=== PATIENT | female | born 1945 | race Caucasian/White ===

== ENCOUNTER 2020-12-17 10:51 | Outpatient (CLI) | payer MEDICARE ==
--- NOTE | 2020-12-28 12:45 | DEXA Report ---
PROCEDURE: Dexa Spine and/or Hip INDICATIONS: POST MENOPAUSAL TECHNIQUE: Dual energy x-ray absorptiometry (DXA) was performed on a Mobile365 (fka [employer]) System. Regions measur ed are the AP Spine, femoral neck, and if needed forearm. COMPARISON: None. FINDINGS: Lumbar Spine: Bone Mineral Density 1.279 g/cm/cm,T score 0.9, normal Left Hip: Bone Mineral Density 1.07. g/cm/cm,T score 0.5, normal Left Femoral Neck: Bone Mineral Density 0.974 g/cm/cm, T score -0.5, normal (T score greater or equal to -1.0: NORMAL) (T score from -1.1 to -2.4: OSTEOPENIA) (T score less than or equal to -2.5 to: OSTEOPOROSIS) Impression: Normal bone mineral density. Patients with diagnosis of osteoporosis or osteopenia should have regular bone mineral density assess ment. For those eligible for Medicare, routine testing is allowed once every 2 years. Testing frequ ency can be increased for patients who have rapidly progressing disease or for those who are receivin g medical therapy to restore bone mass. Reviewed by: Charlette Fraga MD on 12/17/2020 3:58 PM PDT Approved by: Charlette Fraga MD on 12/17/2020 3:58 PM PDT Station ID: [id number]
== END 2020-12-17 10:52 | disposition home or self-care (01) ==
LOC: DI 10:51
PROVIDERS: ATTEND Registered Nurse
DX: Z78.0 Asymptomatic menopausal state (principal)

== ENCOUNTER 2020-12-17 10:54 | Outpatient (CLI) | payer MEDICARE ==
--- NOTE | 2020-12-23 09:54 | Mammography Report ---
BILATERAL DIGITAL SCREENING MAMMOGRAM 3D/2D: 12/17/2020 CLINICAL: Routine screening. Comparison is made to exam dated: 02/25/2004 mammogram - [facility]. There are scattere d fibroglandular elements in both breasts. There are grouped fine punctate calcifications in the right breast at 12 o'clock middle depth. There are new grouped fine punctate calcifications in the left breast at 8 o'clock posterior depth. No other significant masses or calcifications are seen in either breast. IMPRESSION: INCOMPLETE: NEEDS ADDITIONAL IMAGING EVALUATION The grouped fine punctate calcifications in the right breast at 12 o'clock middle depth are indetermi marii. Mediolateral, spot magnification, and additional views are recommended. The new grouped fine punctate calcifications in the left breast at 8 o'clock posterior depth are inde terminate. Mediolateral, spot magnification, and additional views are recommended. This exam was interpreted at Station ID: [id number]. NOTE: For mammograms, a report in lay terms will be sent to the patient. Approximately 15% of breast malignancies will not be visualized mammographically. In the management of a palpable breast mass, a negative mammogram must not discourage biopsy of a clinically suspicious lesion. Electronically Signed By: Alban Gasca M.D. ddp/:12/22/2020 15:54:28 ACR BI-RADS Category 0: Incomplete 3340F PARENCHYMAL PATTERN: (A) - The breast(s) demonstrate(s) scattered fibroglandular densities. BI-RADS CATEGORY: (0) - 0 RECOMMENDATION: (ADDMAM) - Recommend additional mammographic views. [id number] Immediate follow-up LATERALITY: (B)
== END 2020-12-17 10:55 | disposition home or self-care (01) ==
LOC: DI 10:54
PROVIDERS: ATTEND Registered Nurse
DX: Z12.31 Encounter for screening mammogram for malignant neoplasm of breast (principal); N64.89 Other specified disorders of breast

== ENCOUNTER 2021-01-08 10:17 | Outpatient (CLI) | payer MEDICARE ==
--- NOTE | 2021-01-11 11:36 | Mammography Report ---
BILATERAL DIGITAL DIAGNOSTIC MAMMOGRAM 3D/2D: 01/08/2021 CLINICAL: Patient returns for magnification views of microcalcifications in both breasts. Comparison is made to exams dated: 12/17/2020 mammogram - [facility] and 02/25/2004 ma mmogram - [facility]. There are scattered fibroglandular elements in both breasts. There are grouped amorphous, coarse calcifications in the right breast at 12 o'clock middle depth. There are grouped amorphous, coarse, and punctate calcifications in the left breast at 8 o'clock midd le depth. No other significant masses or calcifications are seen in either breast. IMPRESSION: PROBABLY BENIGN The calcifications in the right breast at 12 o'clock middle depth most likely are fibrocystic change or a degenerating fibroadenoma and are probably benign. A follow-up mammogram in 6 months is recomme nded. The calcifications in the left breast at 8 o'clock middle depth most likely are fibrocystic change or a degenerating fibroadenoma and are probably benign. A follow-up mammogram in 6 months is recommend ed. Findings and recommendations were conveyed to the patient at time of exam. This exam was interpreted at Station ID: [id number]. NOTE: For mammograms, a report in lay terms will be sent to the patient. Approximately 15% of breast malignancies will not be visualized mammographically. In the management of a palpable breast mass, a negative mammogram must not discourage biopsy of a clinically suspicious lesion. Electronically Signed By: Mary sanchez/:01/08/2021 12:05:33 ACR BI-RADS Category 3: Probably benign 3343F PARENCHYMAL PATTERN: (A) - The breast(s) demonstrate(s) scattered fibroglandular densities. BI-RADS CATEGORY: (3) - 3 Mammogram [id number] 6 month follow-up LATERALITY: (B)
== END 2021-01-08 10:18 | disposition home or self-care (01) ==
LOC: DI 10:17
PROVIDERS: ATTEND Registered Nurse
DX: R92.8 Other abnormal and inconclusive findings on diagnostic imaging of breast (principal)

== ENCOUNTER 2022-08-29 10:29 | Outpatient (CLI) | payer MEDICARE ==
--- NOTE | 2022-08-29 14:55 | Ultrasound Report ---
PROCEDURE: Pelvic w/Transvaginal INDICATIONS: PULMONARY NODULES. Postmenopausal bleeding TECHNIQUE: Real-time scanning was performed of the pelvic organs, with image documentation. Additional endovagi nal scanning was necessary due to incomplete visualization of the adnexal and endometrial structures by transabdominal scanning. COMPARISON: None. FINDINGS: Uterus: Uterus is anteverted and normal in size at 6.8 x 6.5 x 3.5 cm. The myometrium is heterogene ous. Calcified lesions are present in the anterior and posterior uterus with posterior acoustic shado wing that obscures large portions of the uterus. There appears to be trace endometrial free fluid. Th e endometrium is not well evaluated, but measures approximately 4.1 mm on one image. Focal nodular ap pearance of the endometrium measuring 4 mm could represent a small endometrial polyp. Ovaries: Ovaries are not well visualized. No suspicious adnexal mass identified. Other: No pathologic free abdominal or pelvic fluid. IMPRESSION: 1.Calcified uterine masses are most likely degenerating fibroids, with significant posterior shadowin g that obscures the majority of the uterus. 2.Questionable nodular irregularity of the endometrium adjacent to trace endometrial fluid, which cou ld possibly represent a small polyp. The visualized portions of the endometrium are not significantly thickened. Consider pelvic MRI for further evaluation if indicated clinically given extensive sonogr aphic imaging artifact. Reviewed by: Agustin Santiago MD on 08/29/2022 2:54 PM PST Approved by: Agustin Santiago MD on 08/29/2022 2:54 PM PST Station ID: [id number]
--- NOTE | 2022-08-29 15:22 | Ultrasound Report ---
PROCEDURE: Ext Limited Non Vascular INDICATIONS: MASS OF LEFT SHOULDER TECHNIQUE: Real-time scanning was performed of the left shoulder, with image documentation. COMPARISON: None. FINDINGS: Focused ultrasound examination in anterior left shoulder shows a lobulated oblong structure with slig ht hyperechoic rim and mostly hypoechoic solid appearing structure measures 6.7 x 5 x 1.8 cm in size. This structure appears to be fairly isoechoic to adjacent subcutaneous soft tissue and show no inter nal vascularity. A small calcific component is noted in central anterior portion of this lesion and m easures 5 x 6 x 3 mm in size without internal vascularity. There is admitted additional area of similar echotexture structure in the more medial aspect of left shoulder/axillary soft tissue and measures 4.6 x 3.6 x 0.9 cm in size and show no internal vascularit y. IMPRESSION: 1. Finding is most consistent with a 6.7 x 5.0 x 1.8 cm lipoma in anterolateral left shoulder soft ti ssue. Clinical and sonographic follow-up is recommended. 2. Suggestion of a second possible lipoma in the more medial left shoulder/axillary soft tissue and m easures 4.6 x 3.6 x 0.9 cm in size. Reviewed by: Josiah Key MD on 08/29/2022 3:20 PM PST Approved by: Josiah Key MD on 08/29/2022 3:20 PM PST Station ID: [id number]
== END 2022-08-29 10:30 | disposition home or self-care (01) ==
LOC: DI 10:29
PROVIDERS: ATTEND Registered Nurse
DX: N95.0 Postmenopausal bleeding (principal); M25.812 Other specified joint disorders, left shoulder

== ENCOUNTER 2024-02-22 08:00 | Outpatient (CLI) | payer MEDICARE | END 2024-02-22 23:59 | disposition home or self-care (01) | LOC: LAB.N 08:00 | PROVIDERS: ATTEND Registered Nurse | DX: R82.79 Other abnormal findings on microbiological examination of urine (principal) | CPT/HCPCS: 87086 ==